=== PATIENT | female | born 1985 | race Caucasian/White ===

== ENCOUNTER 2019-10-20 23:44 | Emergency (ER) | payer BC ==
--- NOTE | 2019-10-21 01:07 | EDM.PDOC ---
ED HPI GENERAL MEDICAL PROBLEM - General Chief Complaint: Lower Extremity Injury/Pain Stated Complaint: LEG INJURY Time Seen by Provider: 10/21/19 00:13 Source of Information: Reports: Patient History Limitations: Reports: No Limitations - History of Present Illness INITIAL COMMENTS - FREE TEXT/NARRATIVE: This is a 34-year-old female. She was walking on uneven ground this evening when she twisted her left foot and ankle and felt a crunch in her left leg and she fell down. Not able to get up afterwards and support herself with her left lower leg. He is having increasing pain and she comes to the clinic for evaluation. She denies any other injuries from the fall. 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 Social & Family History - Family History Family Medical History: Noncontributory - Tobacco Use Smoking Status *Q: Never Smoker Second Hand Smoke Exposure: No - Caffeine Use Caffeine Use: Reports: Coffee, Energy Drinks, Soda, Tea - Recreational Drug Use Recreational Drug Use: No Review of Systems - Review of Systems Review Of Systems: See Below Constitutional: Reports: No Symptoms Eyes: Reports: No Symptoms Ears: Reports: No Symptoms Nose: Reports: No Symptoms Mouth/Throat: Reports: No Symptoms Respiratory: Reports: No Symptoms Cardiovascular: Reports: No Symptoms GI/Abdominal: Reports: No Symptoms Genitourinary: Reports: No Symptoms Musculoskeletal: Reports: Other (As per HPI) Skin: Reports: No Symptoms Neurological: Reports: No Symptoms Psychiatric: Reports: No Symptoms ED EXAM, GENERAL - Physical Exam Exam: See Below Exam Limited By: No Limitations General Appearance: Alert, WD/WN, Mild Distress Eye Exam: Bilateral Eye: Normal Inspection Ears: Normal External Exam Nose: Normal Inspection Throat/Mouth: Normal Inspection, Normal Lips, Normal Voice, No Airway Compromise Head: Normocephalic Neck: Supple Respiratory/Chest: No Respiratory Distress Back Exam: Full Range of Motion Extremities: Other (Lower extremity shows some mild deformity and swelling in the distal tib-fib area, she has movement of her toes and neurovascular is intact in all 5 digits distally, she has no knee pain no hip or other lower extremity pain) Neurological: Alert, Oriented Psychiatric: Normal Affect, Normal Mood Skin Exam: Warm, Dry ED TRAUMA EXTREMITY PROCEDURES - Splinting Left Lower Extremity Splint Site: Left lower leg Pre-Procedure NV Status: Normal Post-Procedure NV Status: Normal Splint Material: Fiberglass Splint Design: Stirrup, Posterior Applied & Form Fitted By: Provider Provider Post-Splint Application NV Check: NV Status Normal, Good Position Complications: No Course - Vital Signs Last Recorded V/S: Last Vital Signs Temp 99.1 F 10/21/19 00:03 Pulse 103 H 10/21/19 00:03 Resp 20 10/21/19 00:03 BP 128/84 10/21/19 00:03 Pulse Ox 98 10/21/19 00:03 - Orders/Labs/Meds Orders: Active Orders 24 hr Category Date Time Status Tibia Fibula Lt [CR] Stat Exams 10/21/19 00:37 Taken Meds: Medications Discontinued Medications Generic Name Dose Route Start Last Admin Trade Name Freq PRN Reason Stop Dose Admin Hydromorphone HCl 0.5 mg 10/21/19 01:14 10/21/19 01:20 Dilaudid IVPUSH 10/21/19 01:15 0.5 mg ONETIME ONE Administration Ondansetron HCl 4 mg 10/21/19 01:14 10/21/19 01:20 Zofran IVPUSH 10/21/19 01:15 4 mg ONETIME ONE Administration - Radiology Interpretation Free Text/Narrative:: X-ray shows a tib-fib fracture. Is a comminuted fracture of the tibia and a spiral fracture of the fibula this mildly displaced. - Re-Assessments/Exams Free Text/Narrative Re-Assessment/Exam: 10/21/19 01:28 Spoke to the patient regarding the fracture. I also spoke to Dr. Camara in [facility] in [place] and he would like to see her sooner than later to repair this tib-fib fracture since she is at risk for a compartment syndrome with this type of fracture. The patient wants to go down to [facility] to be admitted for surgery tomorrow. 10/21/19 01:49 I spoke to the patient and her and they went to down to [facility] for possible repair of the tib-fib fracture tomorrow. I did call [facility] call left a message with the person there to tell Dr. Camara they are coming antoni. Departure - Departure Time of Disposition: 01:50 Disposition: Home, Self-Care 01 Condition: Fair Clinical Impression: Fracture of left tibia and fibula Qualifiers: Encounter type: initial encounter Fracture type: closed Qualified Code(s): S82.202A - Unspecified fracture of shaft of left tibia, initial encounter for closed fracture; S82.402A - Unspecified fracture of shaft of left fibula, initial encounter for closed fracture - Discharge Information *PRESCRIPTION DRUG MONITORING PROGRAM REVIEWED*: No *COPY OF PRESCRIPTION DRUG MONITORING REPORT IN PATIENT MYAH: No Instructions: Tibial Fracture, Adult, [id number] Referrals: Rima Myers [employer]UT[employer]HTER [Primary Care Provider] - Forms: ED Department Discharge Additional Instructions: Being discharged from the ER here in [place] straight down to [facility] ER, there you will present yourself with the paperwork and Dr. Camara and the orthopedist will be expecting you, return to the ER if needed, on the way down keep your leg elevated as much as possible above your heart and ice it down as well. DO NOT EAT OR DRINK ANYTHING UNTIL YOU SEE DR. CAMARA Sepsis Event Note (ED) - Evaluation Sepsis Screening Result: No Definite Risk - Focused Exam Vital Signs: Vital Signs Temp Pulse Resp BP Pulse Ox 10/21/19 00:03 99.1 F 103 H 20 128/84 98 ED Communication - ED Communication Date/Time Date: 10/21/19 Time Called: 01:10 - Discussed Case With (1) Discussed Case With (1): Admitting Provider Person/s Notified (1): Dr. Camara (He agrees to see the patient in the ER for further evaluation and treatment at [facility]) - My Orders Last 24 Hours: My Active Orders 10/21/19 00:37 Tibia Fibula Lt [CR] Stat - Assessment/Plan Last 24 Hours: My Active Orders 10/21/19 00:37 Tibia Fibula Lt [CR] Stat
[2019-10-21] MEDS ORDERED: HYDROmorphone 0.5 MG/0.5 ML Syringe IVPUSH ONE ×2 (01:14→02:07)
[2019-10-21] MEDS ORDERED: Ondansetron 4 MG/2 ML SDV IVPUSH ONE (01:14)
--- NOTE | 2019-10-23 09:41 | CR ---
Left tibia and fibula: AP and lateral views of the left tibia and fibula were obtained. Comminuted fracture identified within the distal one third diaphysis of the tibia. Mild displacement is seen. Mildly comminuted fibular shaft fracture is seen within the mid to distal diaphysis with minimal displacement. Diffuse soft tissue swelling is noted. No additional abnormality is appreciated. Impression: 1. Comminuted tibia and fibular fractures. 2. Mild displacement and soft tissue swelling. Diagnostic code #3 This report was dictated in MDT
== END 2019-10-21 02:43 | disposition home or self-care (01) ==
LOC: JD.ED 23:44
DX: S82.302A Unspecified fracture of lower end of left tibia, initial encounter for closed fracture (principal); S82.832A Other fracture of upper and lower end of left fibula, initial encounter for closed fracture; S82.442A Displaced spiral fracture of shaft of left fibula, initial encounter for closed fracture; S82.452A Displaced comminuted fracture of shaft of left fibula, initial encounter for closed fracture; Z88.0 Allergy status to penicillin; X50.1XXA Overexertion from prolonged static or awkward postures, initial encounter
CPT/HCPCS: 29515; 73590; 96374; 96375; 96376; 99283; J1170; J2405

== ENCOUNTER 2021-01-07 05:25 | Emergency (ER) | payer BC ==
[2021-01-07] MEDS ORDERED: Lidocaine 1% 10 ML MDV INJECT ONE (05:38)
--- NOTE | 2021-01-07 05:46 | EDM.PDOC ---
<Manuel Rodriguez - Last Filed: 01/07/21 07:39> ED HPI GENERAL MEDICAL PROBLEM - General Chief Complaint: Upper Extremity Injury/Pain Stated Complaint: RT HAND PINKY INJURY Time Seen by Provider: 01/07/21 05:38 - History of Present Illness INITIAL COMMENTS - FREE TEXT/NARRATIVE: 35-year-old female presents to the emergency room with a right hand injury. Patient was out walking her dogs this morning and tripped and fell forward. She injured her pinky finger and is unable to move it at this point she has a laceration on the flexor surface. Patient denies any other injury associated with this most unfortunate event. 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 Social & Family History - Family History Family Medical History: No Pertinent Family History - Caffeine Use Caffeine Use: Reports: Coffee, Energy Drinks, Soda, Tea Review of Systems - Review of Systems Review Of Systems: See Below Constitutional: Reports: No Symptoms Respiratory: Reports: No Symptoms Cardiovascular: Reports: No Symptoms GI/Abdominal: Reports: No Symptoms ED EXAM, GENERAL - Physical Exam Exam: See Below Exam Limited By: No Limitations General Appearance: Alert, No Apparent Distress Head: Atraumatic, Normocephalic Neck: Normal Inspection, Supple, Non-Tender, Full Range of Motion Respiratory/Chest: No Respiratory Distress, Lungs Clear, Normal Breath Sounds Cardiovascular: Regular Rate, Rhythm, No Edema, No Murmur Extremities: Other (Right pinky finger has a dorsal laceration in the vicinity of the proximal interphalangeal joint. She has buckled skin on the dorsum and it appears to be dislocated or fractured) ED TRAUMA EXTREMITY PROCEDURES - Laceration/Wound Repair Right Digit - 5th (Baby) Lac/Wound Length In cm: 1.3 Appearance: Subcutaneous, Irregular, Clean Anesthetic Type: Digital Local Anesthesia - Lidocaine (Xylocaine): 1% Plain Local Anesthetic Volume: 2cc Exploration/Debridement/Repair: Wound Explored, In a Bloodless Field, Explored to Base Suture Size: 4-0 # of Sutures: 6 Suture Type: Nylon Tetanus Status Addressed: Yes (This will be updated) Complications: No - Joint Reduction Right Fingers Sedation: Digital Block Local Anesthesia - Lidocaine (Xylocaine): 1% Plain Local Anesthetic Volume: 2cc Pre-Procedure NV Status: Normal Post-Procedure NV Status: Normal Technique: Other (Fraction then extension than flexion) Number of Attempts: 1 Post-Reduction Imaging: Completely Reduced Joint Reduction Complications: No Course - Re-Assessments/Exams Free Text/Narrative Re-Assessment/Exam: 01/07/21 06:08 X-ray of the affected hand and digit shows a dorsal dislocation of the middle phalanx on the proximal phalanx 01/07/21 07:39 Patient's case was discussed with Dr. Red, on-call orthopedic surgeon with bone and joint. He agrees with splinting antibiotics and recommends the patient follow-up with Dr. Roberto. The patient has a penicillin allergy however will be given a gram of Rocephin IM and then started on doxycycline 100 mg twice daily. Patient's finger will be splinted. Departure - Departure Time of Disposition: 07:46 Disposition: Home, Self-Care 01 Clinical Impression: Dislocation, finger, interphalangeal joint, Laceration of finger - Discharge Information Prescriptions: Doxycycline [Vibra-Tabs] 100 mg PO BID #20 tablet Instructions: Finger or Thumb Dislocation, Laceration Care, Adult Referrals: Rima Myers NP [Primary Care Provider] - Johnson Roberto MD [Physician] - Forms: ED Department Discharge Additional Instructions: Return to the emergency room with any questions problems or worsening symptoms return immediately if you think you might be developing an infection. Follow-up with Dr. Roberto in 1 week. Call today to schedule an appointment. You have been started on doxycycline this is an oral twice daily [facility]. Wear the splint at all times. Keep the wound absolutely clean and dry for the next 48 hours after this you can let water gently roll over the area and then dab dry no scrubbing. Suture removal in the clinic in 10 to 12 days. Sepsis Event Note (ED) - Evaluation Sepsis Screening Result: No Definite Risk <Chucky Sen - Last Filed: 01/10/21 11:07> Course - Vital Signs Last Recorded V/S: Last Vital Signs Temp 97.5 F 01/07/21 05:31 Pulse 98 01/07/21 05:31 Resp 16 01/07/21 05:31 BP 143/98 H 01/07/21 05:31 Pulse Ox 96 01/07/21 05:31 - Orders/Labs/Meds Meds: Medications Discontinued Medications Generic Name Dose Route Start Last Admin Trade Name Freq PRN Reason Stop Dose Admin Ceftriaxone Sodium 1 gm/ 0 gm 01/07/21 07:30 01/07/21 08:24 Lidocaine HCl 2.1 ml IM 1 inj Q24H GREG Administration Diphtheria/Tetanus/Acell Pertussis 0.5 ml 01/07/21 09:10 Diphtheria,Pertussis(Acell),Tetanus Vaccine 0.5 Ml Syringe IM 01/07/21 09:11 .ONCE ONE Doxycycline Hyclate 100 mg 01/07/21 07:25 01/07/21 08:24 Doxycycline 100 Mg Cap PO 01/07/21 07:26 100 mg ONETIME ONE Administration Lidocaine HCl 10 ml 01/07/21 05:38 01/07/21 06:30 Lidocaine 1% 10 Ml Mdv INJECT 01/07/21 05:39 10 ml ONETIME ONE Administration - Re-Assessments/Exams Free Text/Narrative Re-Assessment/Exam: 01/07/21 13:12 Dr. Rodriguez did not sent prescription for Doxycyline to pt pharmacy. Prescription was sent by myself.
[2021-01-07] MEDS ORDERED: Doxycycline 100 MG Cap PO ONE (07:25)
[2021-01-07] MEDS ORDERED: cefTRIAXone 1 GM, Lidocaine 1% 2.1 ML IM SCH ×2 (07:30)
--- NOTE | 2021-01-07 07:52 | CR ---
Right hand: 3 views of the right hand were obtained. Comparison: No previous study. Dislocation is seen within the PIP joint of the right fifth finger. Soft tissue swelling is noted. No additional fracture, dislocation or other bony abnormality is appreciated. Impression: 1. Dislocated PIP joint of the right fifth finger. 2. Soft tissue swelling. 3. No additional abnormality is appreciated. Diagnostic code #3
[2021-01-07] MEDS ORDERED: Diphtheria,Pertussis(Acell),Tetanus Vaccine 0.5 ML Syringe IM ONE (09:10)
--- NOTE | 2021-01-07 12:30 | CR ---
Right fifth finger: 4 views of the right fifth finger were obtained. Comparison: Prior right hand exam performed earlier on the same day (6:01 AM). Previous dislocation has been reduced. Soft tissue swelling remains. Minimal calcification is seen off the PIP joint compatible with minimal small cortical avulsion injury. Impression: 1. Dislocation has been reduced. 2. Minimal cortical avulsion fracture is noted around the PIP joint as well as soft tissue swelling. Diagnostic code #2
== END 2021-01-07 09:08 | disposition home or self-care (01) ==
LOC: JD.ED 05:25
DX: S63.296A Dislocation of distal interphalangeal joint of right little finger, initial encounter (principal); S61.216A Laceration without foreign body of right little finger without damage to nail, initial encounter; Z88.0 Allergy status to penicillin; W01.0XXA Fall on same level from slipping, tripping and stumbling without subsequent striking against object, initial encounter; Y93.K1 Activity, walking an animal
CPT/HCPCS: 12001; 26770; 73130; 73140; 99283; A9270; J0696; 96372